=== PATIENT | male | born 1940 | race Caucasian/White ===

== ENCOUNTER → 2016-09-19 | Outpatient (CLI) | payer MEDICARE | LOC: GMAB 10:46 | PROVIDERS: ATTEND Family Medicine | DX: R97.20 Elevated prostate specific antigen [PSA] (principal); I10 Essential (primary) hypertension ==

== ENCOUNTER → 2016-10-03 | Outpatient (CLI) | payer MEDICARE | LOC: GMAB 10:20 | PROVIDERS: ATTEND Family Medicine | DX: R94.6 Abnormal results of thyroid function studies (principal) ==

== ENCOUNTER → 2016-11-09 | Outpatient (CLI) | payer MEDICARE | END | disposition home or self-care (01) | LOC: GMAB 10:25 | PROVIDERS: ATTEND Family Medicine | DX: D72.819 Decreased white blood cell count, unspecified (principal); E87.1 Hypo-osmolality and hyponatremia; E53.8 Deficiency of other specified B group vitamins ==

== ENCOUNTER → 2016-12-11 | Outpatient (CLI) | payer MEDICARE | END | disposition home or self-care (01) | LOC: GMAB 08:54 | PROVIDERS: ATTEND Family Medicine | DX: I12.9 Hypertensive chronic kidney disease with stage 1 through stage 4 chronic kidney disease, or unspecified chronic kidney disease (principal); N18.4 Chronic kidney disease, stage 4 (severe) ==

== ENCOUNTER → 2016-12-18 | Outpatient (CLI) | payer MEDICARE ==
--- NOTE | 2016-12-18 11:08 | CT ---
EXAM DESCRIPTION: Abdomen w/o Contrast CLINICAL HISTORY: 76 years,Male,ACUTE KIDNEY FAILURE COMPARISON: None TECHNIQUE: Multiple axial helical tomographic images were obtained of the abdomen and pelvis with out IV or oral contrast and then reconstructed sagittal coronal plane FINDINGS: The unenhanced liver is unremarkable. The spleen is unremarkable. The Pancreas is unremarkable. The adrenal glands are unremarkable. There are no stones seen in the urinary collection system. The kidneys on the right demonstrates a large 5 cm simple cyst The gallbladder is a few small stones within the gallbladder. This could be motion artifact causing the increased density.. No free air free fluid masses or adenopathy. The included bowel are unremarkable. The lung bases demonstrates a consolidation in the lingula. The surrounding soft tissues are unremarkable. The bony elements there is a no acute findings. With severe disease the lower three lumbar levels. Heavily calcified atherosclerotic disease of aorta and branch vessels IMPRESSION: Possible cholelithiasis. Differential could include motion artifact. Large simple cyst right kidney. Heavily calcified atherosclerotic vascular disease. Electronically signed by: Drew Melendez MD 12/18/2016 11:07 AM CDT
== END ==
LOC: CT 08:15
PROVIDERS: ATTEND Internal Medicine Nephrology
DX: N17.9 Acute kidney failure, unspecified (principal); N18.4 Chronic kidney disease, stage 4 (severe); I70.0 Atherosclerosis of aorta; N28.1 Cyst of kidney, acquired

== ENCOUNTER → 2018-01-09 | Outpatient (CLI) | payer MEDICARE | LOC: GMAB 11:05 | PROVIDERS: ATTEND Family Medicine | DX: I10 Essential (primary) hypertension (principal); N39.0 Urinary tract infection, site not specified; Z12.5 Encounter for screening for malignant neoplasm of prostate | CPT/HCPCS: 84443; 87086; G0103 ==

== ENCOUNTER 2018-03-08 03:03 | Observation (INO) | payer MEDICARE ==
[2018-03-08] MEDS ORDERED: SODIUM CHLORIDE 0.9% 1000ML 250 ML IVS ONE (03:25)
[2018-03-08] MEDS ORDERED: ACETAMINOPHEN 325 MG TAB PO ONE (03:29)
--- NOTE | 2018-03-08 05:02 | RAD ---
EXAM DESCRIPTION: Single view of the chest CLINICAL HISTORY: fever COMPARISON: 10/20/2015 FINDINGS: Single frontal view of the chest. The cardiomediastinal silhouette has normal size and contour. Linear left basilar opacity. No pneumothorax or large effusion. No acute osseous abnormality. Upper abdominal soft tissues are unremarkable. IMPRESSION: 1. Linear left basilar opacity may be related to atelectasis or developing pneumonic process. Continued radiographic follow-up to resolution recommended. Electronically signed by: Aguilar Perry 03/08/2018 5:01 AM CDT
--- NOTE | 2018-03-08 05:11 | CT ---
EXAM DESCRIPTION: CT ABDOMEN AND PELVIS WITH CONTRAST CLINICAL HISTORY: fever; back abd pain COMPARISON: 12/18/2016 TECHNIQUE: CT of the abdomen and pelvis performed following IV administration of 100 mL of Optiray 320. DLP: 776.85 mGycm FINDINGS: Lung Bases: Mild bilateral dependent atelectasis. Bones: No destructive bone lesions identified. Degenerative change of the spine. Abdomen: Liver: The liver has normal size and density. No intrahepatic mass or biliary dilatation. Gallbladder: Cholelithiasis without pericholecystic inflammatory change. Spleen, Pancreas, and Adrenal Glands: The spleen, pancreas, and adrenal glands are unremarkable. Kidneys: The kidneys have normal size and contour without evidence of solid mass or hydronephrosis. Bosniak class II right renal cysts. Bosniak class I left renal cyst. Vasculature: Aortoiliac atherosclerosis. IVC is unremarkable. The portal vein is patent. The proximal visceral and renal arteries are patent. Stomach: Small hiatal hernia. Other: No free intraperitoneal air. No free fluid or lymphadenopathy. Pelvis: Bladder: Mild wall thickening of the urinary bladder. Bowel: Scattered diverticula of the colon. No pericolic inflammatory change. No dilated loops of large or small bowel. Appendix: The appendix is not visualized however no evidence of acute appendicitis. Pelvis: Enlarged prostate. IMPRESSION: 1. No acute inflammatory or obstructive process identified. 2. Enlarged prostate likely producing urinary bladder wall thickening related to chronic bladder obstruction. 3. Cholelithiasis. 4. Scattered diverticula of the colon. 5. Small hiatal hernia. This exam was performed according to our departmental dose-optimization program, which includes automated exposure control, adjustment of the mA and/or kV according to patient size and/or use of iterative reconstruction technique. Electronically signed by: Aguilar Perry 03/08/2018 5:09 AM CDT
--- NOTE | 2018-03-08 05:38 | ED.PDOC ---
History of Present Illness - General Chief Complaint: Back Pain or Injury Stated Complaint: low back pain Time Seen by Provider: 03/08/18 03:19 Source: patient, RN notes reviewed, Vital Signs reviewed Exam Limitations: no limitations - History of Present Illness Initial Comments: He was here earlier tonight with what appeared to be musculoskeletal pain. He felt much better by the time he got home & went to bed. He awoke in the night to go to the BR & the pain suddenly appeared again as he turned to the point where he couldn't get up so he called EMS. He wasn't aware he was running a fever but he does talk about what sound like chills. Other than that nothing has changed from his previous visit. Timing/Duration: 1/2 hour Quality/Severity: severe, other - has improved Back Pain Location: lumbar spine Back Pain Radiation: other - he isn't sure if the pain starts in the LLQ of his abd or his lower back. Method of Injury/Prior Injury: twisted Worsening Factors: movement Associated Symptoms: lower back pain Allergies/Adverse Reactions: Allergies Penicillins Allergy (Verified 10/20/15 12:05) Unknown Home Medications: Ambulatory Orders Tamsulosin HCl [Flomax] 0.4 mg PO BEDTIME 10/20/15 Atorvastatin Calcium 01/10/16 Lisinopril 01/10/16 Metformin HCl 01/10/16 Water Pills 01/10/16 Acetaminophen W/ Codeine [Tylenol W/ CODEINE #3] 1 ea PO Q8HRS PRN 5 Days #15 03/07/18 Review of Systems - Review of Systems Constitutional: States: see HPI, chills EENTM: States: no symptoms reported Respiratory: States: no symptoms reported Cardiology: States: no symptoms reported Gastrointestinal/Abdominal: States: see HPI, abdominal pain - LLQ but only when he bends a certain way Genitourinary: States: no symptoms reported Musculoskeletal: States: see HPI, back pain Skin: States: no symptoms reported Neurological: States: no symptoms reported Endocrine: States: no symptoms reported Past Medical History (General) - Patient Medical History Hx Stroke: No Hx Cardiac Disorders: Yes Hx Congestive Heart Failure: No Hx Hypertension: Yes Hx Diabetes: Yes Surgical History: other - Vaccination History Hx Tetanus, Diphtheria Vaccination: No Hx Influenza Vaccination: No Hx Pneumococcal Vaccination: No - Social History Hx Tobacco Use: Yes - Quit 1996 Hx Alcohol Use: Yes - beer, wine Family Medical History - Family History Father Family History: No Known Living Status: Physical Exam - Physical Exam General Appearance: Alert, Comfortable, No apparent distress Neck Exam: full range of motion, normal inspection Cardiovascular/Respiratory: regular rate, rhythm, normal breath sounds, tachycardia Gastrointestinal/Abdominal: non tender, soft, no organomegaly Back Exam: decreased range of motion Extremity Exam: no evidence of injury, no pedal edema Neurologic: no motor/sensory deficits, alert, normal mood/affect, oriented x 3 Skin Exam: normal color, warm/dry Progress - Progress Progress: 03/08/18 05:36 He says he feels a lot better. He hasn't urinated yet & there is no comment on his spine from his CT. We will get that from radiology. He says he feels well enough to go home. 03/08/18 06:23 Says he feels fine as long as he doesn't stand & then he can't bear the back pain. Unable to stand on exam. - Consult/PCP Time Called: 06:48 Consult/PCP: Hospitalist Consult Reason/Comments: intractable back pain (pending clearance of spine on CT ) Departure - Departure Clinical Impression: Back pain Qualifiers: Back pain location: low back pain Chronicity: acute Back pain laterality: bilateral Sciatica presence: without sciatica Qualified Code(s): M54.5 - Low back pain Urinary tract infection Qualifiers: Urinary tract infection type: site unspecified Hematuria presence: without hematuria Qualified Code(s): N39.0 - Urinary tract infection, site not specified Disposition: Discharge to Home or Self Care Condition: Fair Home Medications: Ambulatory Orders Tamsulosin HCl [Flomax] 0.4 mg PO BEDTIME 10/20/15 Atorvastatin Calcium 01/10/16 Lisinopril 01/10/16 Metformin HCl 01/10/16 Water Pills 01/10/16 Acetaminophen W/ Codeine [Tylenol W/ CODEINE #3] 1 ea PO Q8HRS PRN 5 Days #15 03/07/18 Decision To Admit - Decistion To Admit Decision to Admit Reason: Admit from ER - intractable back pain; UTI Decision to Admit Date: 03/08/18 Decision to Admit Time: 06:49
[2018-03-08] MEDS ORDERED: levoFLOXacin 500MG IV 500 MG in PREMIX BAG 1 BAG IVPB ONE (06:25)
[2018-03-08] MEDS ORDERED: levoFLOXacin 500MG IV 100 ML IVPB ONE ×2 (06:33→19:18)
[2018-03-08] MEDS ORDERED: METHOCARBAMOL 750 MG TAB PO ONE (07:11)
--- NOTE | 2018-03-08 08:34 | HP ---
SUPERVISING PHYSICIAN: Ramana Gonzáles M.D. CHIEF COMPLAINT: Intractable lower back pain. HISTORY OF PRESENT ILLNESS: This is a 77 year-old male patient who had been in the Emergency Room 2 times today for lower back pain. He has a significant history of lumbar radiculopathy as well as multiple lower back surgeries and ruptured discs. He has been to rehab before due to his back. This particular incident started about 3 to 4 days ago. He had been working in his yard over several days and initially he thought he was just sore from overdoing it and having chronic back issues. On the day prior to admission he ended up in the E. R. the first time because he had a very difficult time getting around. He was given some [place] and he was sent home. He thought he was feeling better. He had gone to bed. Tried to get up to go to the restroom and was unable to get out of bed. He called EMS and they brought him to the Emergency Room. In the Emergency Room, his lab showed a normal WBC with hemoglobin 14.5, hematocrit 40.8. His sodium was slightly low at 132 with potassium 3.9, chloride 97, carbon dioxide 25, glucose 206. Bilirubin was 1.2. The remainder of his liver enzymes were within normal limits. His urinalysis was positive for a urinary tract infection with positive urine nitrites, trace urine leukocyte esterase, 10 to 20 urine WBCs and 3+ urine bacteria. He was treated with muscle relaxers as well as Levaquin. I was called for admission. PAST MEDICAL HISTORY: 1. Type 2 diabetes. 2. Hyperlipidemia. 3. Hypertension. 4. Benign prostatic hypertrophy. 5. Lumbar radiculopathy 6. Lumbar disc disease. PAST SURGICAL HISTORY: 1. Back surgeries times 3. CURRENT MEDICATIONS: Per the EMR and awaiting verification. ALLERGIES: PENICILLIN. FAMILY HISTORY: Noncontributory. SOCIAL HISTORY: He is . He lives in [place]. He quit smoking 20+ years ago. He drinks alcoholic beverages on a social basis. He denies any illicit drug use. REVIEW OF SYSTEMS: Basically negative except as per History of Present Illness. He has no complaints of dysuria, hematuria or polyuria. PHYSICAL EXAMINATION: VITAL SIGNS: Temperature on admission to the Emergency Room was 101/3, it is now 98. Heart rate was as high as 105 when he was febrile, it is now 88. Blood pressure 157/86, respiratory rate 22, O2 sat is 96% on room air. GENERAL: This is a 77 year-old male patient who is lying in his hospital bed. He is in no acute distress. He is very [id number]. HEENT: Normocephalic and atraumatic. Pupils are equal and reactive. Oropharynx is clear. Oral mucous membranes are moist. NECK: Supple without mass. RESPIRATORY: Essentially clear to auscultation bilaterally. CHEST: There is equal rise and fall of the chest with inspiration and expiration. CARDIOVASCULAR: Regular rate and rhythm. GASTROINTESTINAL: Abdomen is soft, nondistended, non-tender. Bowel sounds are positive. He does have some mild bilateral CVA tenderness. SKIN: Warm and dry. NEUROLOGIC: Cranial nerves II-XII are grossly intact. He is awake, alert and oriented times three. LABORATORY: Labs and films are as per the history of present illness. ASSESSMENT: 1. Acute intractable back pain with a long history of chronic back pain and multiple lower back surgeries. 2. Urinary tract infection. 3. Lumbar radiculopathy. 4. Diabetes mellitus type 2. 5. Hypertension. PLAN: We will place the patient in Observation. He will have [place] and muscle relaxers for the lower back pain. I will give him 4 scheduled doses of IV Toradol. I will order a PT evaluation. His back pain may be exacerbated by the urinary tract infection, but is most likely from the chronic lower back pain. If he continues to have problems after continuation of the antibiotics in the morning, I will refer him to a rehab. Will continue the Levaquin as started in the E. R. I have also ordered Accu-Cheks with sliding scale insulin and Lovenox for DVT prophylaxis as well as PPI for ulcer prophylaxis. Will continue to monitor him closely and follow as needed. Dr. Gonzáles is the collaborating physician available for consultation. #[id number] [facility]
[2018-03-08] MEDS ORDERED: INSULIN, REG.(HUMAN) 100 U/ML VIAL IV ONE (09:01)
[2018-03-08] MEDS ORDERED: SODIUM CHLORIDE 0.9% (FLUSH) 10 ML SYG IV PRN (10:08)
[2018-03-08] MEDS ORDERED: HYDROcodone 7.5MG/APAP 325MG 1 EA TAB PO PRN (10:13)
[2018-03-08] MEDS: PANTOPRAZOLE SODIUM IV 40 MG VIAL IV SCH (12:05)
[2018-03-08] MEDS: ENOXAPARIN SODIUM 40 MG/0.4 ML SYG SUBCU SCH (12:06)
[2018-03-08] MEDS: IV SET AND CAP CHANGE INJ INJ SCH (12:31)
[2018-03-08] MEDS ORDERED: DEXTROSE 50% 25 GM/50 ML SYG IV PRN (14:57)
[2018-03-08] MEDS ORDERED: GLUCAGON INJ 1 MG VIAL SUBCU PRN (14:57)
[2018-03-08] MEDS: KETOROLAC TROMETHAMINE INJ 30 MG/ML VIAL IV SCH ×2 (16:29→20:40)
[2018-03-08] MEDS: METHOCARBAMOL 750 MG TAB PO PRN (16:30)
[2018-03-08] MEDS: INSULIN LISPRO 100 UNITS/ML PEN SUBCU SCH ×2 (16:39→20:56)
[2018-03-08] MEDS: metFORMIN HCL 500 MG TAB PO SCH (16:41)
[2018-03-08] MEDS: predniSONE 1 MG TAB PO SCH (16:41)
[2018-03-08] MEDS: SODIUM CHLORIDE 0.9% (FLUSH) 10 ML SYG IV SCH (20:40)
[2018-03-08] MEDS: TAMSULOSIN 0.4 MG CAP PO SCH (20:40)
[2018-03-09] MEDS: KETOROLAC TROMETHAMINE INJ 30 MG/ML VIAL IV SCH ×4 (02:57→20:41)
[2018-03-09] MEDS: METHOCARBAMOL 750 MG TAB PO PRN ×2 (02:57→21:03)
[2018-03-09] MEDS: predniSONE 1 MG TAB PO SCH ×3 (06:22→17:32)
[2018-03-09] MEDS: levoFLOXacin 500MG IV 500 MG in PREMIX BAG 1 BAG IVPB SCH (06:23)
[2018-03-09] MEDS: INSULIN LISPRO 100 UNITS/ML PEN SUBCU SCH ×4 (07:42→21:00)
[2018-03-09] MEDS: metFORMIN HCL 500 MG TAB PO SCH ×2 (07:44→17:32)
[2018-03-09] MEDS ORDERED: traMADol HCL 50 MG TAB PO PRN (09:35)
[2018-03-09] MEDS: ENOXAPARIN SODIUM 40 MG/0.4 ML SYG SUBCU SCH (09:57)
[2018-03-09] MEDS: LISINOPRIL 10 MG TAB PO SCH (09:57)
[2018-03-09] MEDS: ATORVASTATIN 10 MG TAB PO SCH (09:57)
[2018-03-09] MEDS: TAMSULOSIN 0.4 MG CAP PO SCH ×2 (09:57→20:41)
[2018-03-09] MEDS: PANTOPRAZOLE SODIUM IV 40 MG VIAL IV SCH (09:57)
[2018-03-09] MEDS: SODIUM CHLORIDE 0.9% (FLUSH) 10 ML SYG IV SCH ×2 (09:58→20:42)
--- NOTE | 2018-03-09 10:37 | PN ---
DATE: 03/09/18 SUPERVISING PHYSICIAN: Ramana Gonzáles MD SUBJECTIVE: The patient is sitting up in his bed. His son is at the bedside. He was able to walk down the hallway with physical therapy and at this point he is agreeable to physical therapy referral after discharge. His mobility is improving and we discussed some medication changes and hopefully he will be able to be discharged in the morning. OBJECTIVE: VITAL SIGNS: He is afebrile. Heart rate 87. Blood pressure 145/70. Respiratory rate 18. 02 saturation 98% on room air. RESPIRATORY: Essentially clear to auscultation bilaterally. CARDIAC: Regular rate and rhythm. NEUROLOGICAL: He is awake, alert and oriented x 3 LABORATORY: There are no labs or films to report at this time. ASSESSMENT: 1. Acute intractable back pain with a long history of chronic back pain and multiple lower back surgeries. 2. Urinary tract infection. 3. Lumbar radiculopathy. 4. Diabetes mellitus type 2. 5. Hypertension. PLAN: We will continue present supportive care. He will finish his scheduled Toradol today. I have changed his Malone to Tramadol and continued his muscle relaxer. Plan for discharge tomorrow with close followup with Dr. Resendiz. He will need a physical therapy referral at his followup appointment. I spoke with Patrick, the physical therapist, and he agreed that he did not need to go to a rehabilitation facility but he would benefit greatly from outpatient physical therapy and will continue to monitor the patient closely and follow as needed. Dr. Gonzáles is the collaborating physician available for consultation. #[id number] [facility]
[2018-03-09] MEDS ORDERED: levoFLOXacin 500MG IV 100 ML IVPB ONE (20:04)
[2018-03-09] MEDS: LORATADINE 10 MG TAB PO SCH (20:41)
[2018-03-10] MEDS: levoFLOXacin 500MG IV 500 MG in PREMIX BAG 1 BAG IVPB SCH (05:52)
[2018-03-10] MEDS: predniSONE 1 MG TAB PO SCH ×3 (06:06→16:56)
[2018-03-10] MEDS: INSULIN LISPRO 100 UNITS/ML PEN SUBCU SCH ×4 (07:51→21:13)
[2018-03-10] MEDS: metFORMIN HCL 500 MG TAB PO SCH ×2 (07:51→16:56)
[2018-03-10] MEDS: ENOXAPARIN SODIUM 40 MG/0.4 ML SYG SUBCU SCH (08:12)
[2018-03-10] MEDS: TAMSULOSIN 0.4 MG CAP PO SCH ×2 (08:12→21:21)
[2018-03-10] MEDS: METHOCARBAMOL 750 MG TAB PO PRN ×3 (08:12→21:39)
[2018-03-10] MEDS: ATORVASTATIN 10 MG TAB PO SCH (08:12)
[2018-03-10] MEDS: LISINOPRIL 10 MG TAB PO SCH (08:12)
[2018-03-10] MEDS: SODIUM CHLORIDE 0.9% (FLUSH) 10 ML SYG IV SCH ×2 (11:06→21:21)
[2018-03-10] MEDS: PANTOPRAZOLE SODIUM IV 40 MG VIAL IV SCH (11:06)
[2018-03-10] MEDS ORDERED: MORPHINE SULFATE INJ 10 MG/ML VIAL IV ONE (15:07)
[2018-03-10] MEDS ORDERED: HYDROcodone 10MG/APAP 325MG 1 EA TAB PO ONE (15:27)
--- NOTE | 2018-03-10 21:01 | PN ---
DATE: 03/10/18 SUPERVISING PHYSICIAN: Ramana Gonzáles M.D. SUBJECTIVE: The patient is lying in bed. We initially had plans for his discharge today to have outpatient physical therapy, but today he had a very difficult time even sitting up on the side of the bed. His back was really hurting him and according to him it was "tightening up." The nurses reported that he was again having a difficult time moving just like he did on date of admission, so he agreed to go to [facility] in [place]. OBJECTIVE: VITAL SIGNS: He is afebrile, heart rate 88, blood pressure 158/66, respiratory rate 16, O2 sat 94% on room air. RESPIRATORY: Essentially clear to auscultation bilaterally. CARDIAC: Regular rate and rhythm. NEUROLOGIC: He is awake, alert and oriented times three. LABORATORY: There are no labs or films to report at this time. ASSESSMENT: 1. Acute intractable back pain with a long history of chronic back pain and multiple lower back surgeries. 2. Urinary tract infection. 3. Lumbar radiculopathy. 4. Diabetes mellitus type 2. 5. Hypertension. PLAN: We will continue present supportive care. He has completed his Toradol and I have restarted his [place]. I called [facility] today and spoke to their liaison, and she will be unable to admit him today but will be here in the morning to do his admission assessment. We will plan to transfer to [facility] tomorrow. Will continue with present medications and plan for discharge tomorrow. He does have a followup appointment with Dr. Resendiz on 03/21/18 at 10:15 AM. He will need to keep that with Dr. Resendiz for his hospital discharge appointment. #[id number] [facility]
[2018-03-10] MEDS: LORATADINE 10 MG TAB PO SCH (21:21)
[2018-03-10] MEDS ORDERED: LISINOPRIL 10 MG TAB PO ONE (21:35)
[2018-03-10] MEDS ORDERED: cloNIDine HCL 0.1 MG TAB PO ONE (21:35)
[2018-03-10] MEDS: HYDROcodone 7.5MG/APAP 325MG 1 EA TAB PO PRN (21:40)
[2018-03-10] MEDS ORDERED: levoFLOXacin 500MG IV 100 ML IVPB ONE (21:57)
[2018-03-11] MEDS: HYDROcodone 7.5MG/APAP 325MG 1 EA TAB PO PRN ×5 (03:23→22:36)
[2018-03-11] MEDS: METHOCARBAMOL 750 MG TAB PO PRN ×3 (03:42→18:04)
[2018-03-11] MEDS: levoFLOXacin 500MG IV 500 MG in PREMIX BAG 1 BAG IVPB SCH (06:17)
[2018-03-11] MEDS: predniSONE 1 MG TAB PO SCH ×3 (06:32→18:02)
[2018-03-11] MEDS: metFORMIN HCL 500 MG TAB PO SCH ×2 (07:38→17:48)
[2018-03-11] MEDS: INSULIN LISPRO 100 UNITS/ML PEN SUBCU SCH ×4 (07:39→20:56)
[2018-03-11] MEDS: TAMSULOSIN 0.4 MG CAP PO SCH ×2 (08:42→20:30)
[2018-03-11] MEDS: LISINOPRIL 10 MG TAB PO SCH ×2 (08:42→20:30)
[2018-03-11] MEDS: ATORVASTATIN 10 MG TAB PO SCH (08:42)
[2018-03-11] MEDS: SODIUM CHLORIDE 0.9% (FLUSH) 10 ML SYG IV SCH ×2 (09:28→20:30)
[2018-03-11] MEDS ORDERED: amLODIPine BESYLATE 5 MG TAB PO SCH (09:30)
[2018-03-11] MEDS: ENOXAPARIN SODIUM 40 MG/0.4 ML SYG SUBCU SCH (09:31)
[2018-03-11] MEDS: PANTOPRAZOLE SODIUM IV 40 MG VIAL IV SCH (12:37)
[2018-03-11] MEDS: IV SET AND CAP CHANGE INJ INJ SCH (12:41)
[2018-03-11] MEDS ORDERED: cloNIDine HCL 0.1 MG TAB PO ONE (17:43)
[2018-03-11] MEDS ORDERED: cloNIDine HCL 0.1 MG TAB ONE (17:44)
--- NOTE | 2018-03-11 18:48 | PN ---
DATE: 03/11/18 SUPERVISING PHYSICIAN: Sigifredo Brenner M.D. SUBJECTIVE: The patient feels okay. He is still having some back pains but states his pain medication is helping with this. He is not having any urinary symptoms. OBJECTIVE: Blood pressure 160/83, heart rate 88, respiratory rate 18, temperature 98.4, oxygen saturation 94%. GENERAL: Mr. Rowley is a 77 year-old male patient in no active distress. NEUROLOGIC: The patient is alert and oriented. LUNGS: Clear to auscultation bilaterally. CARDIOVASCULAR: Regular rate and rhythm. Normal S1 and S2. ABDOMEN: Soft. Positive bowel sounds. EXTREMITIES: No edema. 2+ pulses. Capillary refill less than 2 seconds. ASSESSMENT: 1. Acute intractable back pains on chronic back pain. 2. Urinary tract infection. 3. Lumbar radiculopathy. 4. Diabetes mellitus type 2. 5. Hypertension. PLAN: [facility] has accepted the patient but will not take him until tomorrow. Will continue current medications. I have also spoken with Dr. Resendiz about the patient and his need for an appointment with a back surgeon. We have contacted the place where he had his surgery before and that physician actually retired, and so they are working on getting him in at the place in [place]. I do not have an appointment for that as of yet though. Will discharge him tomorrow to [facility]. #[id number] [facility]
[2018-03-11] MEDS ORDERED: LISINOPRIL 10 MG TAB ONE (19:20)
[2018-03-11] MEDS ORDERED: amLODIPine BESYLATE 5 MG TAB ONE (19:20)
[2018-03-11] MEDS: LORATADINE 10 MG TAB PO SCH (20:30)
[2018-03-11] MEDS: amLODIPine BESYLATE 5 MG TAB PO SCH (20:30)
[2018-03-12] MEDS: METHOCARBAMOL 750 MG TAB PO PRN (01:14)
[2018-03-12] MEDS ORDERED: levoFLOXacin 500MG IV 100 ML IVPB ONE (02:50)
[2018-03-12] MEDS: HYDROcodone 7.5MG/APAP 325MG 1 EA TAB PO PRN ×2 (04:00→08:08)
[2018-03-12] MEDS: levoFLOXacin 500MG IV 500 MG in PREMIX BAG 1 BAG IVPB SCH (06:19)
[2018-03-12] MEDS: predniSONE 1 MG TAB PO SCH (06:22)
[2018-03-12] MEDS ORDERED: LISINOPRIL 10 MG TAB ONE (07:28)
[2018-03-12] MEDS ORDERED: amLODIPine BESYLATE 5 MG TAB ONE (07:29)
[2018-03-12] MEDS: INSULIN LISPRO 100 UNITS/ML PEN SUBCU SCH (07:32)
[2018-03-12] MEDS: metFORMIN HCL 500 MG TAB PO SCH (07:37)
[2018-03-12] MEDS: LISINOPRIL 10 MG TAB PO SCH (08:08)
[2018-03-12] MEDS: TAMSULOSIN 0.4 MG CAP PO SCH (08:09)
[2018-03-12] MEDS: SODIUM CHLORIDE 0.9% (FLUSH) 10 ML SYG IV SCH (08:09)
[2018-03-12] MEDS: ATORVASTATIN 10 MG TAB PO SCH (08:09)
[2018-03-12] MEDS: amLODIPine BESYLATE 5 MG TAB PO SCH (08:09)
[2018-03-12] MEDS: ENOXAPARIN SODIUM 40 MG/0.4 ML SYG SUBCU SCH (08:09)
[2018-03-12] MEDS: PANTOPRAZOLE SODIUM IV 40 MG VIAL IV SCH (10:04)
[2018-03-12 10:57] VITALS: BP 167/83; TEMP 98.2; O2SAT 97
--- NOTE | 2018-03-12 11:43 | DS ---
SUPERVISING PHYSICIAN: Sigifredo Brenner MD ADMISSION DIAGNOSIS: 1. Acute intractable back pain with long history of chronic pain and multiple lower back surgeries. 2. Urinary tract infection. 3. Lumbar radiculopathy. 4. Diabetes mellitus, type 2. 5. Hypertension. DISCHARGE DIAGNOSIS: 1. Acute intractable back pain with long history of chronic pain and multiple lower back surgeries. 2. Urinary tract infection. 3. Lumbar radiculopathy. 4. Diabetes mellitus, type 2. 5. Hypertension. HOSPITAL COURSE: This is a 77-year-old male patient who had been in the Emergency Room for lower back pain. He has a significant history of lumbar radiculopathy as well as multiple lower back surgeries and ruptured discs. He has been to rehab before due to his back. This particular incident started about 3 to 4 days prior to admission. He had been working in his yard over several days and initially he thought he was just sore from overdoing it and having chronic back issues. On the day prior to admission he ended up in the E. R. the first time because he had a very difficult time getting around. He was given some [place] and he was sent home. He thought he was feeling better. He had gone to bed. Tried to get up to go to the restroom and was unable to get out of bed. He called EMS and they brought him to the Emergency Room. In the Emergency Room, his lab showed a normal WBC with hemoglobin 14.5, hematocrit 40.8. His sodium was slightly low at 132 with potassium 3.9, chloride 97, carbon dioxide 25, glucose 206. Bilirubin was 1.2. The remainder of his liver enzymes were within normal limits. His urinalysis was positive for a urinary tract infection with positive urine nitrites, trace urine leukocyte esterase, 10 to 20 urine WBCs and 3+ urine bacteria. He was treated with muscle relaxers as well as Levaquin. While in the hospital, the patient's cultures as far as his urine is concerned have remained negative. He is still complaining of some back discomfort and some weakness. Therefore, he was referred to [facility] in [place] for rehabilitation. He accepted that and is going to go to [facility] today. In the meantime, I have also discussed with Dr. Resenidz, his new primary care physician who took over for Dr. Hoffman. The patient has had several back surgeries in [place] and the physician who actually performed those surgeries has retired, however, they are in contact with the same facility to get him in with a new neurosurgeon. Once his rehab is completed, hopefully he will have an appointment to be reevaluated there. He is not having any paresthesias, no findings on exam that are concerning for spinal cord compression. This appears to be an acute on chronic issue. DISCHARGE ACTIVITY: per physical therapy at [facility]. DISCHARGE MEDICATIONS: New prescriptions written for: 1. Amlodipine 5 mg b.i.d. 2. Lisinopril 20 mg p.o. b.i.d. 3. Levaquin 500 mg p.o. daily. 4. Robaxin 75 mg p.o. q.i.d. 5. Tramadol 50 to 100 mg p.o. every 4 to 6 hours p.r.n. pain. These are in addition to his home medications. DIET: Regular diet. FOLLOWUP: He has followup appointment with Dr. Resendiz on 03/21/18 at 10:15 in the morning. #[id number] [facility]
== END 2018-03-12 10:57 ==
LOC: ER 03:03 → MS 08:33 → INTOOBSV 08:33
PROVIDERS: ADMIT Family Medicine; ATTEND Nurse Practitioner Acute Care
DX: M51.16 Intervertebral disc disorders with radiculopathy, lumbar region (principal); G89.29 Other chronic pain; N39.0 Urinary tract infection, site not specified; B96.89 Other specified bacterial agents as the cause of diseases classified elsewhere; E11.65 Type 2 diabetes mellitus with hyperglycemia; I10 Essential (primary) hypertension; E87.1 Hypo-osmolality and hyponatremia; R50.9 Fever, unspecified; E78.5 Hyperlipidemia, unspecified; N40.0 Benign prostatic hyperplasia without lower urinary tract symptoms; K57.30 Diverticulosis of large intestine without perforation or abscess without bleeding; K80.20 Calculus of gallbladder without cholecystitis without obstruction; K44.9 Diaphragmatic hernia without obstruction or gangrene; Z79.84 Long term (current) use of oral hypoglycemic drugs; Z79.899 Other long term (current) drug therapy; Z88.0 Allergy status to penicillin; Z87.891 Personal history of nicotine dependence
CPT/HCPCS: J1885 ×6; J1956 ×5; J7030; J1650 ×5; J7512 ×11; J1815; 80053; 87086; 82948 ×15; 36415 ×2; 81001; 85025; 87040 ×2; 36416 ×13; 71045; 74177; 94760 ×22; 97530 ×2; 97116 ×4; G8978; G8979; 97162

== ENCOUNTER → 2018-04-19 | Outpatient (CLI) | payer MEDICARE | LOC: LAB.O 08:12 | PROVIDERS: ATTEND Internal Medicine Infectious Disease | DX: M46.46 Discitis, unspecified, lumbar region (principal); Z79.2 Long term (current) use of antibiotics ==

== ENCOUNTER → 2018-04-25 | Outpatient (CLI) | payer MEDICARE | LOC: GMAE 14:52 | PROVIDERS: ATTEND Family Medicine | DX: E83.42 Hypomagnesemia (principal) ==

== ENCOUNTER → 2018-06-24 | Outpatient (CLI) | payer MEDICARE | LOC: GMAE 12:56 | PROVIDERS: ATTEND Family Medicine | DX: R97.20 Elevated prostate specific antigen [PSA] (principal) ==

== ENCOUNTER → 2020-03-15 | Outpatient (CLI) | payer MEDICARE | LOC: GMAE 10:33 | PROVIDERS: ATTEND Family Medicine | DX: Z12.5 Encounter for screening for malignant neoplasm of prostate (principal); I10 Essential (primary) hypertension; E11.40 Type 2 diabetes mellitus with diabetic neuropathy, unspecified; E78.2 Mixed hyperlipidemia | CPT/HCPCS: 84443; G0103 ==

== ENCOUNTER → 2020-09-22 | Outpatient (CLI) | payer MEDICARE | LOC: GMAE 11:32 | PROVIDERS: ATTEND Family Medicine | DX: R94.6 Abnormal results of thyroid function studies (principal); R97.20 Elevated prostate specific antigen [PSA]; E11.40 Type 2 diabetes mellitus with diabetic neuropathy, unspecified ==